=== PATIENT | female | born 1985 | race Hispanic/Latino ===

== ENCOUNTER → 2025-03-10 | Day surgery (SDC) | payer BC ==
[2025-03-07 10:07] LABS: BASOPHILS % 0.8 % (0.0-1.0); EOSINOPHILS % 6.1 % (0.0-6.0); LYMPHOCYTES % 33.7 % (18.0-39.1); MONOCYTES % 7.5 % (4.4-11.3); NEUTROPHILS % 51.5 % (38.7-80.0); RED CELL DISTRIBUTION WIDTH 12.6 % (11.7-14.4)
[2025-03-07 10:34] LABS: EST GLOMERULAR FILTRATION RATE 114.0 ML/MIN (>=60)
[~2025-03-10] MED LIST: LIDOCAINE HCL 2% LOCAL INJ 5 ML SDV VIAL INJ ONE; PROPOFOL IV EMULSION 10 MG/ML 20 ML VIAL ONE; PROPOFOL IV EMULSION 50 ML IV ONE
[2025-03-10] MEDS: LACTATED RINGER'S 1,000 ML ONE (07:18)
[2025-03-10 09:35] VITALS: BP 116/68; PULSE 88; RESP 18; O2SAT 97
== END | disposition home or self-care (01) ==
LOC: OR 06:28
PROVIDERS: ATTEND Surgery
DX: K64.8 Other hemorrhoids (principal); K21.00 Gastro-esophageal reflux disease with esophagitis, without bleeding; K44.9 Diaphragmatic hernia without obstruction or gangrene; Z88.0 Allergy status to penicillin; Z01.812 Encounter for preprocedural laboratory examination
CPT/HCPCS: 36415; 43235; 45378; 80053; 81025; 85025; J2003; J2704 ×2; J7121; 43239